=== PATIENT | female | born 1995 | race Caucasian/White ===

== ENCOUNTER 2018-01-14 09:42 | Emergency (ER) | payer OTHER ==
[2018-01-14] MEDS ORDERED: Morphine 4 MG/ML VIAL ONE (10:10)
== END 2018-01-14 10:57 | disposition home or self-care (01) ==
LOC: ERS 09:42
DX: I26.99 Other pulmonary embolism without acute cor pulmonale (principal); Z79.01 Long term (current) use of anticoagulants
CPT/HCPCS: 96372; J2270

== ENCOUNTER 2018-01-15 22:52 | Inpatient (IN) | payer OTHER ==
[2018-01-16] MEDS ORDERED: Morphine 4 MG/ML VIAL ONE ×2 (01:25→04:02)
[2018-01-16 01:34] LABS: #Eosinphils 0.1 thou/uL (0.0-0.7); #Lymphocytes 1.5 thou/uL (1.20-3.40); #Monocytes 0.7 thou/uL (0.11-0.59); #Neutrophils 5.6 thou/uL (1.40-6.50); %Basophils 0.4 % (0.0-1.0); %Lymphocytes 18.9 % (21.0-51.0); %Monocytes 8.8 % (0.0-10.0); %Neutrophils 70.9 % (42.0-75.0); Hemoglobin 11.2 g/dL (12.0-16.0); Mean Corpuscular HGB CONC 32.5 g/dL (32.0-36.0); Mean Corpuscular Hemoglobin 26.5 pg (27.0-31.0); Mean Corpuscular Volume 81.6 fl (81.0-99.0); Mean Platelet Volume 7.2 fL (7.4-10.4); Platelet Count 519 thou/uL (130-400); RBC Distribution Width 11.3 % (11.5-14.5); Red Blood Cell (RBC) Count 4.24 mill/uL (4.20-5.40); White Blood Cell (WBC) Count 7.9 thou/uL (4.8-10.8)
[2018-01-16 01:41] LABS: BHCG - Serum Negative (NEGATIVE); Pregs Control Background? CLEAR/WHITE (CLR/WHITE); Pregs Control Bar Appear? YES (CONTROL BAR)
[2018-01-16 01:48] LABS: ALT (SGPT) 7 U/L (8-55); AST (SGOT) 9 U/L (5-34); Albumin 3.8 g/dL (3.5-5.0); Alkaline Phosphatase 56 U/L (40-150); Anion Gap 12 mmol/L (10-20); BUN (Urea Nitrogen) 7 mg/dL (7.0-18.7); Bilirubin, Total 0.4 mg/dL (0.2-1.2); CK (CPK) 23 U/L (29-168); Calc. Creatinine Clearance 0 mL/min (70-130); Calcium 9.6 mg/dL (7.8-10.44); Carbon Dioxide 27 mmol/L (22-29); Chloride 101 mmol/L (98-107); Estimated GFR-MDRD Greater than 90; Globulin 3.9 g/dL (2.4-3.5); Glucose 99 mg/dL (70-105); Lipase 10 U/L (8-78); Potassium 3.9 mmol/L (3.5-5.1); Protein, Total 7.7 g/dL (6.0-8.3); Sodium 136 mmol/L (136-145)
[2018-01-16 02:01] LABS: CKMB 0.2 ng/mL (0-6.6); Troponin I Less than 0.010 ng/mL (< 0.028)
[2018-01-16 02:30] LABS: Bilirubin Negative (Negative); Blood, Urine Negative (Negative); Clarity CLEAR (Clear); Glucose, Urine (Dipstick) Negative (Negative); Leukocyte Trace (Negative); Nitrite Negative (Negative); Protein, Urine (Dipstick) Negative (Neg-Trace); Specific Gravity, Urine 1.024 (1.002-1.036)
[2018-01-16 02:31] LABS: Bacteria/HPF None Seen HPF (None Seen); Hyaline Casts/LPF 0-3 HYALINE CAST LPF (0-3 Hyaline); Pathc Cast-AUWi Flag 0.43 (0-2.49); Squamous Epithelial 0-3 HPF (0-3)
[2018-01-16 02:34] LABS: Oval Fat Bodies/HPF None Seen HPF (None Seen); Renal Epithelial None Seen HPF (0-3); Sperm/HPF None Seen HPF (None Seen); Transitional Epithelial NONE SEEN HPF (0-3); Trichomonas/HPF None Seen HPF (None Seen); Yeast-All Forms None Seen HPF (None Seen)
[2018-01-16] MEDS ORDERED: Lorazepam 2 MG/ML VIAL ONE (04:02)
[2018-01-16] MEDS ORDERED: Ondansetron ODT 4 MG TAB SL PRN (05:51)
[2018-01-16] MEDS ORDERED: Ondansetron HCl/PF 4 MG/2 ML Vial IVP PRN ×2 (05:51→07:52)
[2018-01-16] MEDS ORDERED: Sodium Chloride 0.9% 1,000 ML IV SCH (05:51)
[2018-01-16] MEDS ORDERED: Morphine 4 MG/ML VIAL SLOW IVP PRN (05:53)
[2018-01-16 07:41] VITALS: BMI 23.6
[2018-01-16] MEDS ORDERED: Ondansetron ODT 4 MG TAB PO PRN (07:52)
[2018-01-16] MEDS ORDERED: Mag-Al 1200 mg/1200 mg/30 ML UDCUP PO PRN (07:52)
[2018-01-16] MEDS ORDERED: Cyclobenzaprine 10 MG TAB PO PRN (07:52)
[2018-01-16] MEDS ORDERED: Acetaminophen 325 MG TAB PO PRN (07:52)
[2018-01-16] MEDS ORDERED: Acetaminophen/Codeine 30-300mg Tablet PO PRN (07:52)
[2018-01-16] MEDS ORDERED: Ketorolac Tromethamine 30 MG/ML VIAL IVP SCH (08:00)
[2018-01-16] MEDS ORDERED: Rivaroxaban 15 MG TAB PO SCH (08:00)
[2018-01-16] MEDS ORDERED: Famotidine 20 MG TAB PO SCH (09:00)
[2018-01-16] MEDS ORDERED: Docusate 100 MG CAP PO SCH (09:00)
--- NOTE | 2018-01-16 09:12 | HP ---
PRIMARY CARE PHYSICIAN: The patient does not have a primary care physician. CHIEF COMPLAINT: Back pain, severe muscle spasms and now was recently diagnosed with a pulmonary emb olism. HISTORY OF PRESENT ILLNESS: Ms. Denis is a pleasant 22-year-old female that has no significant p ast medical history. She says that on Saturday, she was having some severe pain in her left side. She had gone to the emergency room in [facility] where they did a CT angiogram and found that she had a pul monary embolism. She was given a prescription for Xarelto and discharged home. She says that she st arted having more pain in the left side and felt like muscle spasms, especially when she tries to therese e in a deep breath. For this reason, she came to the emergency room here. They gave her a prescript ion for tramadol and sent her from the emergency room. She says she started taking the tramadol and originally felt fine all day yesterday, but then around 10:00 p.m. last night, she got up to go to [facility] bathroom and started having severe cramping in her left side and said that she could barely lay dalia k on that side and could hardly get any sleep. As a result, she was afraid something bad was happeni ng, so she came to the ER once again. A CT scan verified the pulmonary embolism and she is being adm itted for further recommendations. The patient does not feel short of breath unless she has the pain . She is sitting comfortably in the bed and does not appear to be in any distress; however, she did start to get tearful and stated that she has not been able to rest in the last 4 days. The tramadol was making her nauseated and was not helping. REVIEW OF SYSTEMS: Constitutional: There have been no fevers, no chills, no night sweats, no weight loss. HEENT: No headaches, no dizziness, no visual changes, no sore throat, rhinorrhea, neck pain, no adenopathy. Pulmonary: No cough. She does have pleuritic chest pain. No hemoptysis. Cardiova scular: She denies any pains in her chest. No PND, no orthopnea. Gastrointestinal: No abdominal p ain, no nausea, no vomiting, no change in bowels. Genitourinary: No urinary frequency, hematuria, n o hesitancy. Neurologic: No focal weakness, numbness, no seizures. Psychiatric: No symptoms of an xiety or depression. Skin and Integument: No skin changes. No rash. PAST MEDICAL HISTORY: Negative. PAST SURGICAL HISTORY: Negative. ALLERGIES: No known drug allergies. SOCIAL HISTORY: She is a student. She is originally from [place]. She is a nonsmoker, nondrinker. FAMILY HISTORY: Significant for hypertension in her grandfather, mother and brother, and essential t hrombocythemia. MEDICATIONS: Include Xarelto 15 mg twice a day and she had been on the ring for contraception. PHYSICAL EXAMINATION: VITAL SIGNS: Her blood pressure was 143/80, heart rate 116, respiratory rate is 16, temperature is 9 9.8. HEENT: Pupils are equal, round, and reactive. Extraocular muscles are intact. Her sclerae are anic teric. Throat: There is no erythema, no exudates. NECK: No adenopathy, no bruits. LUNGS: Clear to auscultation. There is no wheezing, no rales, no rubs. CARDIOVASCULAR: She has a normal S1, S2. I do not appreciate an S3 or S4. No murmurs, clicks or ru bs. ABDOMEN: Soft, it is nontender, nondistended. Positive for bowel sounds. No rebound, no guarding. EXTREMITIES: There is no clubbing, cyanosis, no edema. NEUROLOGICALLY: Her muscle strength is 5/5 in both her upper and lower extremities and it is nonfoca l. SIGNIFICANT LABORATORY DATA AND IMAGING: Urinalysis was essentially negative. The white blood cell count was 7.9, hemoglobin 11.2, hematocrit is 34.6, platelet count was 519. Sodium was 136, potassiu m 3.9, chloride is 101, CO2 is 27, BUN is 7, creatinine 0.78, glucose was 99. Troponin was less than 0.010. Serum test was negative. Her EKG was sinus tachycardia, the rate was approximatel y 103. ASSESSMENT AND PLAN: This is a 22-year-old female who was recently diagnosed with a pulmonary emboli sm and now is presenting with fairly severe pleuritic chest pain, which is interfered with her activi ties of daily living, especially with sleeping. Her pulmonary embolism was diagnosed on Saturday and t herefore, it is expected for her to have a certain degree of pain at this time as do not feel that it is an unusual amount and she appears to be on appropriate therapy for the pulmonary embolism and wou ld not change therapy regarding that. It appears as if she needs better symptom management. We may add a muscle relaxer to see if this will help her symptoms and a 1 time dose of Toradol to see if she can get some rest through the day today. She was offered a second opinion with a pulmonary consult from the emergency room physician. Therefore, we will go ahead and consult director of employer services; however, i f her symptoms are better by the end of the day, then she could be discharged home in my opinion, lópez pastrana without seeing the director of employer services. She has an outpatient appointment scheduled with a vest maker on Saturday and hopefully if we can get her symptoms better controlled, then she can be discharged home . Also note that her blood pressure is stable. She does have some tachycardia, but her O2 saturatio ns have been good on room air.
--- NOTE | 2018-01-16 11:09 | CT ---
PRELIMINARY REPORT/[facility]/EMERGENTY AFTER-HOURS PROCEDURE CT Angiography Chest With Intravenous Contrast CLINICAL HISTORY: 22 years old, female; Pain; Chest wall pain; Patient HX: F22 presents to ed C/O back pain and muscle spasm. On saturday, went to [facility] er and was dx with pe. They think it was d/t her contraceptives. Pt was placed on 15 mg xarelto bid. Pt came here yesterday because she had muscle spasm pain on her l s rob, was given tramadol which made her nauseated and didn't help the pain. As she was getting ready to go to bed this evening, she started having muscle spasm again in he r lower back. Pt has been sleeping sitting upright because of the pain to her "l lung. " additionally , pt was vomiting this am. Pt took extra strength tylenol at 2130. Pt has an appt with dr. Little on saturday. Denies injury or trauma. rambo Marie evans - 01/16/2018 2: 39: 45 am. Er4; F22 presents to e d C/O back pain and muscle spasm. On saturday, went to [facility] er and was dx with pe. They think it was d/t her contraceptives. Pt was placed on 15 mg xarelto bid. Pt came here yesterday because she had m uscle spasm pain on her l side, was given tramadol which TECHNIQUE: Axial computed tomographic angiography images of the chest with intravenous contrast using pulmonary embolism protocol. MIP reconstructed images were created and reviewed. COMPARISON: No relevant prior studies available. FINDINGS: Pulmonary arteries: Left lower lobe segmental and subsegmental pulmonary emboli. Aorta: No acute findings. No thoracic aortic aneurysm. Lungs: Left basilar atelectatic/consolidative opacities. Incidental azygos fissure. Pleural space: Trace left pleural fluid. No pneumothorax. Heart: No acute findings. No cardiomegaly. No pericardial effusion. No evidence of heart strain. Bones/joints: No acute fracture. Soft tissues: No acute findings. Lymph nodes: No lymphadenopathy. IMPRESSION: Left lower lobe pulmonary embolism. Left basilar atelectatic/consolidative opacities could relate to pulmonary infarction, pneumonia not excluded. Thank you for allowing us to participate in the care of your patient. Dictated and Authenticated by: Sebas Nunn MD 01/16/2018 4:05 AM Central Time ([place] & [place]) FINAL REPORT CT ANGIO CHEST PERFORMED WITH INTRAVENOUS CONTRAST ENHANCEMENT WITH 3D RECONSTRUCTIONS: HISTORY: Patient with recent diagnosis of pulmonary embolus now with chest pain on left side. FINDINGS: The right lung is clear of any infiltrative process. Minimal subsegmental atelectatic changes are se en in the right base. There are more pronounced parenchymal changes in the left lower lobe which wou ld suggest atelectasis or infiltrate. These do not have the typical appearance of a pulmonary infarc t. Motion artifact does degrade detail of the pulmonary arteries, but there is evidence of left lower pu lmonary embolus that is segmental and subsegmental level. No other definitive emboli. No significan t mediastinal or hilar adenopathy. The visualized liver parenchyma is unremarkable. The spleen is enlarged. It measures 13.2 cm in [facility]. Right and left adrenal glands and the visualized portions of the kidneys appear unremarkable. No significant adenopathy in the upper abdomen noted. IMPRESSION: 1. Left lower lobe pulmonary embolus with parenchymal change in the left lower lobe which I favor to be more related on the basis of atelectasis or infiltrate. This does not have the typical appearanc e of a pulmonary infarct. It is not as focal, but this is not definitely excluded. 2. Mild splenomegaly. 3. This report is in agreement with the temporary report issued by [facility]. POS: [facility]
--- NOTE | 2018-01-16 11:54 | CON ---
DATE OF CONSULTATION: 01/16/2018 REASON FOR CONSULTATION: Pulmonary embolism. HISTORY OF PRESENT ILLNESS: Ms. Denis is a pleasant 22-year-old female, who presented to the emergency room this morning with left-sided pain. She was diagnosed with bilateral pulmonary embolism at [facility] ER on 01/13/2018. Her CT pulmonary angiogram done at that facility confirmed thompson ateral small pulmonary emboli. There was no occlusion of the primary main segmental pulmonary arteri es. She was hemodynamically stable and given one dose of Lovenox and started on oral Xarelto b.i.d. She returned to the emergency room at this facility on the with complaints of pain. She was giv en tramadol, which she said made her throw up this morning. Her left flank pain was unrelenting, so she presented to this ER once again. She had a repeat CT scan, which confirmed a pulmonary embolism. She was admitted for pain control. She denies any shortness of breath, no cough, no hemoptysis. S he had a NuvaRing in place for about a year. This was removed approximately a week ago and felt to b e the cause of her pulmonary embolism; however, she does have some family history of clotting. Her f ather had a DVT and a saddle pulmonary emboli after the surgical procedure and was on anticoagulation for over a year. She has a brother, who was diagnosed with essential thrombocytosis at the age of 1 7 and remains on Lovenox shots. She has no other medical problems. No recent viral illness, surgery , or prior history of thromboembolic events. PAST MEDICAL HISTORY: None. PAST SURGICAL HISTORY: None. ALLERGIES: No known drug allergies. HOME MEDICATIONS: None. FAMILY HISTORY: Father had DVT and PE. Brother has essential thrombocytosis. There is a history of Hodgkin's in her grandfather and gastric cancer. SOCIAL HISTORY: Single. She is a student. No smoking or alcohol use. REVIEW OF SYSTEMS: Twelve-point review of systems is negative except for noted in HPI. PHYSICAL EXAMINATION: VITAL SIGNS: Temperature is 100.2, pulse is 115, respiratory rate 16, BP is 133/86. She is 97% on r oom air. GENERAL: Well-developed, well-nourished female in no acute distress. HEENT: Normocephalic, atraumatic. Pupils equal and reactive to light. NECK: Supple. CARDIOVASCULAR: Regular rate and rhythm. LUNGS: Clear. ABDOMEN: Soft, nontender, bowel sounds are positive. EXTREMITIES: There is no clubbing, cyanosis, or edema. SKIN: No rash. HEMATOLOGIC: There is no petechia or purpura. NEUROLOGIC: Nonfocal. PSYCHIATRIC: The patient is alert and oriented and appropriate. PERTINENT LABORATORY AND X-RAYS: Current WBCs are 7.9, hemoglobin 11.2, hematocrit 34.6, platelet co unt is 519,000. Sodium is 136, potassium 3.9, chloride 101, CO2 is 27, BUN is 7, creatinine 0.78, bi lirubin is 0.4, AST is 9, ALT 7, alkaline phosphatase is 56, creatinine kinase is 23. Troponin is ne gative. Serum total protein is 7.7, albumin 3.8, globulin 3.9. test is negative. Urine s hows no bacteria. IMPRESSION: 1. Pulmonary embolism, recently diagnosed. 2. Pleuritic pain. DISCUSSION: The patient has been treated with tramadol for her discomfort and denies any at this quan e. The seed mill superintendent has seen the patient and is planning a short course of steroids, hypercoagulati on panel, and the lupus workup has been initiated by Dr. Pickett. Patient has a followup appointment tomorrow with Dr. Little in our clinic. Recommend pain control and discharge either this afternoon or tomorrow so she can be seen in our office. Thank you for the consult.
--- NOTE | 2018-01-16 12:28 | CON ---
DATE OF CONSULTATION: 01/16/2018 SERVICE: Pulmonary Medicine. REASON FOR CONSULTATION: Pulmonary embolism. HISTORY OF PRESENT ILLNESS: The patient is a 22-year-old white female with past medical history sign ificant for essentially nothing. She has a brother and dad, who both had pulmonary embolisms. She w as in her usual state of health when she started having onset of shortness of breath which was fairly abrupt. She went to the emergency department roughly 5 days ago. She was discovered to have a pulm onary embolism, but because she was requiring oxygen, and was not significantly tachycardic with no s ignificant heart strain, she was discharged from the emergency department on Xarelto. Ultimately, geronimo mendez was doing fine, but ended up having intense pleuritic chest discomfort. She [facility] where a CT scan was repeated. It demonstrated an infarction. Her pleuritic chest dis comfort has improved a little bit overnight, but that was with pain medications. She is concerned ab out going home because if she does, she is worried that she will not have the resources to take care of her discomfort. Otherwise, she does not have any resting dyspnea. She does not get lightheaded o n standing. PAST MEDICAL HISTORY: Pulmonary embolism. PAST SURGICAL HISTORY: None. SOCIAL HISTORY: She drinks occasionally. She is a lifelong nonsmoker, and does not use any street d rugs. She denies any exposure to chemicals, dust asbestos or tuberculosis. FAMILY HISTORY: Positive for multiple relatives with pulmonary embolisms. ALLERGIES: No known drug allergies. MEDICATIONS: List of her inpatient medications were reviewed. Couple of small updates was made. REVIEW OF SYSTEMS: General, head, ears, eyes, nose, throat, cardiovascular, respiratory, GI, , mus culoskeletal, neurologic and skin is negative except as mentioned in the HPI. PHYSICAL EXAMINATION: VITAL SIGNS: Afebrile with a T-max of 100.2. Pulse 109, blood pressure 125/76, respirations 18, sat uration 93% on room air. GENERAL: The patient awake, alert, no apparent distress. LUNGS: Decent air entry. I do not appreciate prolonged expiratory phase, wheezing, rhonchi or crack les. HEART: Normal rate, regular. ABDOMEN: Soft, nontender, nondistended. Bowel sounds are positive. MUSCULOSKELETAL: No cyanosis or clubbing. There is no pitting in the bilateral lower extremities. NEUROLOGIC: Grossly nonfocal. LABORATORY DATA: WBC 7.9, hemoglobin 11.2, platelets 519,000. Basic metabolic profile, liver functi on studies are essentially unremarkable. Troponin is negative. Serum is also unremarkable . Urinalysis is unremarkable except for a trace leukocyte esterase. IMAGING: CTA of the chest demonstrates findings consistent with a pulmonary embolism, and area of jasmyne ng that likely represents infarction. Pneumonia; however, cannot be excluded. CT of the chest demonstrates a small pulmonary embolus. She also has a left lower lobe infiltrate ve rsus infarction. PLAN: The patient will continue her anticoagulation. We will give her a 5-day course of Augmentin j ust in case there is an infectious process that is occurring here. She does have a pleuritis. A 5-d ay course of prednisone will be provided. Once the patient feels well enough to go home, from my per spective, she is stable for transition out of the hospital either today or tomorrow. Pulmonary Criti bro Care will continue to follow along for the time being. Because of her strong family history of d eep venous thrombosis and pulmonary embolism, it is reasonable to do secondary testing.
[2018-01-16] MEDS ORDERED: predniSONE 20 MG TAB PO SCH (12:30)
[2018-01-16] MEDS ORDERED: Amoxicillin/Potassium Clav 875 MG TAB PO SCH ×2 (12:30→21:00)
[2018-01-16] MEDS ORDERED: ISOVUE-370 76%-LOCM 1 ML ONE (13:20)
[2018-01-16 15:23] VITALS: BP 123/73; TEMP 99.1
--- NOTE | 2018-01-17 05:40 | DIS ---
DATE OF ADMISSION: 01/16/2018 DATE OF DISCHARGE: 01/16/2018 DISCHARGE DISPOSITION: Home. DISCHARGE DIAGNOSES: 1. Pulmonary embolism. 2. Pleurisy. DISCHARGE MEDICATIONS: Xarelto 15 mg twice a day, prednisone 10 mg daily for 5 days and Augmentin 87 5 mg q.12h. for 5 days. CODE STATUS: Full code. ALLERGIES: No known drug allergies. PROCEDURES DONE DURING ADMISSION: The patient had a CT angiogram of the chest which demonstrated a l eft lower lobe pulmonary embolism and with parenchymal change in the left lower lobe which was more f avored to be related to atelectasis and possibly infiltrate and not infarction. There was mild splen omegaly. CODE STATUS: Full code. HOSPITAL COURSE: Ms. Denis is a pleasant 22-year-old female who had recently been diagnosed with a pulmonary embolism a few days prior to admission, but due to persistent pain in her left back and side she came to the emergency room again. The patient was admitted and seen by Pulmonology as well as Hematology. She was placed on Augmentin in the event that she may have some infectious process in the lung in addition to the pulmonary embolism and a short course of steroids for the pleuritic pain ; however, she had been appropriately treated for the pulmonary embolism and this treatment will be c ontinued with the Xarelto and she has been taken off of the contraceptive medication and she is to es tablish a primary care physician in the near future, hopefully within the next week or two, so that s he can have appropriate followup.
[2018-01-17] MEDS ORDERED: predniSONE 5 MG TAB PO SCH (08:00)
[2018-01-17 13:28] LABS: DRVVT Confirm 109.8; DRVVT Screen 110.2 SEC (20-50)
== END 2018-01-16 17:16 | disposition home or self-care (01) | DRG 176 ==
LOC: ERS 22:52 → 2NO 01-16 04:30
PROVIDERS: ADMIT Internal Medicine; ATTEND Internal Medicine
DX: I26.99 Other pulmonary embolism without acute cor pulmonale (principal); J98.11 Atelectasis; R09.1 Pleurisy
CPT/HCPCS: 36415; 71275; 80053; 81003; 81015; 81240; 81241; 82553; 83690; 84484; 84703; 85025; 85613; 93005; 96372; A4216; J1885; J2060; J2270; J7506

== ENCOUNTER 2018-02-05 12:46 | Outpatient (CLI) | payer OTHER ==
--- NOTE | 2018-02-05 14:03 | RAD ---
TWO VIEWS CHEST: Date: 02-05-18 Comparison: None. History: Dyspnea. FINDINGS: Incidental note is made of an azygos lobe and fissure. There is no pneumothorax, pleural fluid, focal consolidation or alveolar edema. Heart and mediastinal contour is unremarkable. IMPRESSION: No acute findings. POS: [facility]
== END 2018-02-05 12:47 | disposition home or self-care (01) ==
LOC: RAD 12:46
PROVIDERS: ATTEND Internal Medicine
DX: R06.00 Dyspnea, unspecified (principal)
CPT/HCPCS: 71046